=== PATIENT | female | born 1960 | race Caucasian/White ===

== ENCOUNTER 2019-02-12 15:16 | Day surgery (SDC) | payer OTHER ==
[~2019-02-12] VITALS: Ht 167.6 cm; Wt 63.9 kg
[~2019-02-12 15:16] MED LIST: CALCIUM + D3 E1 EACH PO; LEVSOD75 PO
== END 2019-02-12 19:25 | disposition home or self-care (01) ==
LOC: ORSCSDS 15:16
PROVIDERS: Internal Medicine Gastroenterology
PROC: 0DBL8ZX Excision of Transverse Colon, Via Natural or Artificial Opening Endoscopic, Diagnostic (ICD-10-PCS; principal; 2019-02-12 14:45)
DX: Z12.11 Encounter for screening for malignant neoplasm of colon (principal); Z80.0 Family history of malignant neoplasm of digestive organs; D12.3 Benign neoplasm of transverse colon; E03.9 Hypothyroidism, unspecified; Z79.899 Other long term (current) drug therapy; K57.30 Diverticulosis of large intestine without perforation or abscess without bleeding; K64.8 Other hemorrhoids
CPT/HCPCS: 88305; J2704; J7120

== ENCOUNTER → 2021-03-04 | Outpatient (CLI) | payer OTHER | LOC: LAB 15:41 → LAB SHORT 15:41 | DX: R35.0 Frequency of micturition (principal) | CPT/HCPCS: 87086 ==

== ENCOUNTER → 2021-07-22 | Outpatient (CLI) | payer OTHER | LOC: LAB SHORT 10:20 | DX: N39.9 Disorder of urinary system, unspecified (principal) | CPT/HCPCS: 87086 ==

== ENCOUNTER 2024-04-09 06:07 | Day surgery (SDC) | payer OTHER ==
[2024-04-09] VITALS (11 sets, daily range): BP systolic 86–143; BP diastolic 59–84
[~2024-04-09] VITALS: Ht 165.1 cm; Wt 66.5 kg
[2024-04-09] MEDS ORDERED: Lactated Ringer's 1,000 ML IV SCH ×3 (06:25→09:10)
[2024-04-09] MEDS ORDERED: Ropivacaine 0.5% HCl/Pf 123.125 MG,EPINEPHrine HCL 0.25 MG,Ketorolac Tromethamine 15 MG... INFIL SCH (06:25)
[2024-04-09] MEDS ORDERED: Tranexamic Acid 100 ML IV SCH (06:25)
[2024-04-09] MEDS ORDERED: Acetaminophen 500 MG Tab PO SCH ×3 (06:25→16:00)
[2024-04-09] MEDS ORDERED: OxyCODONE HCL 10 MG TABCR PO SCH (06:25)
[2024-04-09] MEDS ORDERED: CeFAZolin Sodium 2,000 MG in NS 100 ML IV SCH ×2 (06:25→16:00)
[2024-04-09] MEDS ORDERED: Chlorhexidine Mouth Care 15 ML UDC MT SCH (06:25)
[2024-04-09] MEDS ORDERED: Midazolam HCl 1MG / ML 2ML Vial IV ONE (07:05)
[2024-04-09] MEDS ORDERED: FentaNYL Citrate 50 MCG/ML 2 ML Injection ONE (07:12)
[2024-04-09] MEDS ORDERED: propofoL 40 ML IV ONE (07:12)
--- NOTE | 2024-04-09 07:18 | NUR ---
History, Chart, Medications and Allergies reviewed before start of procedure. Pre-Op teaching done. Pt verbalizes understanding. Patient confirms NPO status and agrees with scheduled surgery. PT BELONGINGS BAG PLACED UNDER BED.
[2024-04-09] MEDS ORDERED: Bisacodyl 10 MG Supp PR PRN ×2 (07:25→09:10)
[2024-04-09] MEDS ORDERED: HYDROmorphone HCl/Pf 1MG SYR IV PRN ×2 (07:25→09:10)
[2024-04-09] MEDS ORDERED: DiphenhydrAMINE HCL 25 MG Cap PO PRN ×2 (07:25→09:05)
[2024-04-09] MEDS ORDERED: FLU VACC TS2024-25(6MOS UP)/PF 45 MCG/0.5 ML SYRINGE IM SCH (07:30)
[2024-04-09] MEDS ORDERED: Magnesium Hydroxide Conc 10 ML UDC PO PRN ×2 (07:30→09:15)
[2024-04-09] MEDS ORDERED: Metoclopramide HCl 5MG / ML 2ML Vial IV PRN ×2 (07:30→09:15)
[2024-04-09] MEDS ORDERED: OxyCODONE HCL 5 MG TAB PO PRN ×4 (07:30→09:05)
[2024-04-09] MEDS ORDERED: Ondansetron HCl 2 MG / ML 2ML Vial IV PRN ×2 (07:30→09:05)
[2024-04-09] MEDS ORDERED: Prochlorperazine Edisylate 10 mg Vial IV PRN ×2 (07:35→09:05)
[2024-04-09] MEDS ORDERED: Promethazine HCl 25 MG Tab PO PRN ×2 (07:35→09:10)
[2024-04-09] MEDS ORDERED: Phenylephrine HCl 10mg/ml 1 ml Vial ONE (07:45)
[2024-04-09] MEDS ORDERED: propofoL 20 ML IV ONE (08:32)
[2024-04-09] MEDS ORDERED: Docusate Sodium 100 MG Cap PO SCH ×2 (09:00→21:00)
[2024-04-09] MEDS ORDERED: FLU VACC TS2024-25(6MOS UP)/PF 45 MCG/0.5 ML SYRINGE IM ONE (09:05)
[2024-04-09 10:31] LABS: Calcium, Blood 8.5 mg/dL (8.5-10.1); Creatinine, Blood 0.61 mg/dL (0.40-1.00)
--- NOTE | 2024-04-09 11:51 | NUR ---
arrival pt arrived to unit from pacu on bed. very tired but denies any pain. geraldine alcazar. polar bart and tessa hose on. pt sleeping in bed. on room air. able to wiggle toes but denies sensation. plan is to work with therapy once patient is able to feel her legs. pt looking forward to discharging today.
[2024-04-09] MEDS ORDERED: Ketorolac Tromethamine 15mg Vial IV SCH (12:00)
[2024-04-09] MEDS ORDERED: ASPI81CH PO (14:25)
--- NOTE | 2024-04-09 15:22 | NUR ---
DISCHARGE S/P [facility]A PT PAIN WELL CONTROLLED PER EMAR, PT AMBULATED WELL WITH THERAPY. ABLE TO VOID. TOLERATING DIEET WELL ALL PRESCRIPTIONS PICKED UP PRIOR TODISCHARGE. ALL INSTRUCTIONS GONE OVER WITH PATIENT. ALL BELONGINGS WITH PATIENT.
[2024-04-10] MEDS ORDERED: Levothyroxine Sodium 0.125 MG Tab PO SCH (06:00)
[2024-04-10] MEDS ORDERED: Aspirin 81 MG Chew PO SCH ×2 (08:00→09:00)
== END 2024-04-09 15:10 | disposition home or self-care (01) ==
LOC: ORSCMMR 06:07 → ORD 07:30 → SURS 09:50 → ORSCMMR 15:10
PROVIDERS: Orthopaedic Surgery
PROC: 0SR90JZ Replacement of Right Hip Joint with Synthetic Substitute, Open Approach (ICD-10-PCS; principal; 2024-04-09 07:30)
DX: M16.11 Unilateral primary osteoarthritis, right hip (principal); E03.9 Hypothyroidism, unspecified; Z79.899 Other long term (current) drug therapy
CPT/HCPCS: 36415; 72170; 80048; 97110; 97161; 97530; A9270; C1776; J0171; J0690; J0735; J1885; J2250; J2371; J2704; J2795; J3010; J7120

== ENCOUNTER → 2024-09-20 | Outpatient (CLI) | payer OTHER ==
[~2024-09-20] MED LIST changes: +ASPI81CH PO
[2024-09-20 13:43] LABS: BASOPHILS ABSOLUTE AUTO 0.03 K/mm3 (0.00-0.23); BASOPHILS PERCENT AUTO 1 % (0-2); EOSINOPHILS ABSOLUTE AUTO 0.14 K/mm3 (0.00-0.68); EOSINOPHILS PERCENT AUTO 2 % (0-6); Hematocrit 39.8 % (33.0-51.0); Hemoglobin 13.4 g/dL (11.5-16.0); IMMATURE GRAN PERCENT AUTO 0 % (0-1); LYMPHOCYTES ABSOLUTE AUTO 2.38 K/mm3 (0.84-5.20); LYMPHOCYTES PERCENT AUTO 41 % (21-46); MONOCYTES PERCENT AUTO 10 % (4-13); Mean Corpuscular HGB 30.1 pg (26.0-34.0); Mean Corpuscular HGB Conc 33.7 g/dL (31.5-36.5); Mean Corpuscular Volume 89 fL (80-100); Mean Platelet Volume 10.4 fL (9.1-12.4); NEUTROPHILS ABSOLUTE AUTO 2.61 K/mm3 (1.96-9.15); NEUTROPHILS PERCENT AUTO 45 % (41-73); Platelet Count 252 K/mm3 (150-400); RDW Coefficient Variation 13.1 % (11.7-14.2); RDW Standard Deviation 42.5 fL (35.1-46.3); Red Blood Cell Count 4.45 M/mm3 (3.80-5.20); White Blood Cell Count 5.76 K/mm3 (4.00-11.30)
[2024-09-20 14:00] LABS: Albumin, Blood 3.7 g/dL (3.4-5.0); Albumin/Globulin Ratio 1.1 (0.8-1.8); Bilirubin, Total 0.5 mg/dL (0.1-1.0); Bun/Creatinine Ratio 46.3 (12.0-20.0); Calcium, Blood 8.8 mg/dL (8.5-10.1); Creatinine, Blood 0.54 mg/dL (0.40-1.00); Globulin, Blood 3.4 g/dL (2.2-4.0); Potassium, Blood 3.9 mmol/L (3.5-5.5); Thyroid Stimulating Hormone 0.918 uIU/mL (0.360-4.800); Total Protein, Blood 7.1 g/dL (6.4-8.2)
[2024-09-23 23:24] LABS: ANTI-NUCLEAR AB ANA,IGG ELISA None Detected (None Detected)
== END ==
LOC: LAB SHORT 13:35 → LAB 13:35
PROVIDERS: Physician Assistant
DX: M62.81 Muscle weakness (generalized) (principal)
CPT/HCPCS: 80053; 84443; 85025; 85651; 86038; 86140; 86430